=== PATIENT | male | born 1970 | race Caucasian/White ===

== ENCOUNTER 2021-05-17 21:54 | Emergency (ER) | payer OTHER ==
[2021-05-17] MEDS ORDERED: BACITRACIN ZINC OINT 1 PACKET TOP STA (23:42)
[2021-05-17] MEDS ORDERED: KETOROLAC 30 MG/ML VIAL IM STA (23:44)
--- NOTE | 2021-05-17 23:44 | ED Physician Documentation ---
History of Present Illness - Stated complaint Stated Complaint: HOT OIL ON LT ARM/FACE - Chief complaint Chief Complaint: Burn - History obtained from History obtained from: Patient - Additonal information Additional information: 50-year-old man presents after spilling hot oil on his left arm at work today. No other complaints. Review of Systems Skin: reports: Other (Burn) PD PAST MEDICAL HISTORY - Past Medical History Past Medical History: Yes Cardiovascular: Hypertension Respiratory: None Neuro: None Endocrine/Autoimmune: Type 1 diabetes GI: None : None HEENT: None Psych: None Musculoskeletal: None Derm: None - Past Surgical History Past Surgical History: Yes HEENT: Tonsil/Adenoidectomy - Present Medications Home Medications: Ambulatory Orders Medication Instructions Recorded Confirmed Atorvastatin Calcium 40 mg PO DAILY 05/17/21 05/17/21 Glimepiride [Amaryl] 2 mg PO BID 05/17/21 05/17/21 Insulin NPH Human [Humulin N] 30 unit SQ BID 05/17/21 05/17/21 metFORMIN [Glucophage] 1,000 mg PO BIDWM 05/17/21 05/17/21 - Allergies Allergies/Adverse Reactions: Allergies Allergy/AdvReac Type Severity Reaction Status Date / Time No Known Drug Allergies Allergy Verified 05/17/21 22:04 - Social History Does the pt smoke?: No Smoking Status: Never smoker Does the pt drink ETOH?: No Does the pt have substance abuse?: No - Immunizations Immunizations are current?: Yes - POLST Patient has POLST: No PD ED PE NORMAL - Vitals Vital signs reviewed: Yes - General General: Alert and oriented X 3, No acute distress, Well developed/nourished - HEENT HEENT: Atraumatic, PERRL, EOMI - Derm Derm: Normal color, Warm and dry, Other (Superficial partial-thickness burn to dorsal distal forearm/wrist covering less than 1% body surface area. Superficial burn to palm.) - Extremities Extremities: No deformity, Other (2+ bilateral radial pulses) Results - Vitals Vitals: Vital Signs - 24 hr 05/17/21 05/17/21 22:01 23:55 Temperature 36.9 C Heart Rate 104 H 94 Respiratory 16 16 Rate Blood Pressure 179/95 H 153/97 H O2 Saturation 97 97 Oxygen O2 Source Room air PD MEDICAL DECISION MAKING - ED course ED course: 50-year-old man presents status post burn to his dominant hand. Advised him to take a couple days off work to elevate the extremity, apply bacitracin/xeroform. return precautions given. Departure - Departure Disposition: 01 Home, Self Care Clinical Impression: Partial thickness burn of wrist Condition: Good Instructions: ED Burn D 2nd Comments: You were seen in the emergency department for a partial-thickness burn of your wrist and hand. Please return to the emergency department immediately if you have any new or worsening symptoms or other concerns. Follow-up in 48 hours for wound check. We applied Xeroform, bacitracin, and a Kerlix bandage to the wound. Keep it elevated and clean. Take ibuprofen 600 mg every 6 hours as needed for pain. Forms: Activity restrictions Discharge Date/Time: 05/18/21 00:05
[2021-05-17 23:57] VITALS: BP 153/97
== END 2021-05-18 00:05 | disposition home or self-care (01) ==
LOC: ED 21:54
DX: T23.272A Burn of second degree of left wrist, initial encounter (principal); T31.0 Burns involving less than 10% of body surface; I10 Essential (primary) hypertension; E10.9 Type 1 diabetes mellitus without complications; Z79.4 Long term (current) use of insulin
CPT/HCPCS: 96372; 99281; 99283; A9270; 1040M

== ENCOUNTER 2021-07-07 21:40 | Outpatient (CLI) | payer OTHER | END 2021-07-07 21:41 | disposition short-term general hospital (02) | LOC: EMS 21:40 | DX: Z04.1 Encounter for examination and observation following transport accident (principal); M25.531 Pain in right wrist | CPT/HCPCS: A0425; A0429 ==